=== PATIENT | female | born 1970 | race Two or more races ===

== ENCOUNTER 2021-05-16 15:03 | Emergency (ER) | payer OTHER ==
[~2021-05-16] VITALS: Ht 162.6 cm; Wt 54.4 kg
[2021-05-16] MEDS ORDERED: DAYTIME COLD M1 EACH PO (18:43)
[2021-05-16] MEDS ORDERED: NASAL MIST126 ML NASAL (18:43)
[2021-05-16] MEDS ORDERED: ZITHROMAX500 MG PO (18:43)
== END 2021-05-16 18:51 | disposition home or self-care (01) ==
LOC: ER 15:03
DX: J32.9 Chronic sinusitis, unspecified (principal)